=== PATIENT | male | born 1945 | race Caucasian/White ===

== ENCOUNTER → 2019-02-25 | Outpatient (CLI) | payer MEDICARE ==
[2019-02-25 13:08] LABS: Appearance,Urine Clear (Clear); Bilirubin,Urine Negative (Negative); Blood,Urine Negative (Negative); Color,Urine Yellow; Glucose,Urine (UA) Negative (Negative); Ketones,Urine Negative (Negative); Leukocyte Esterase,Urine Negative (Negative); Nitrite,Urine Negative (Negative); Protein,Urine Negative (Negative); Specific Gravity,Urine 1.023 (1.001-1.035); Urobilinogen,Urine <2.0 mg/dL (<2.0)
[2019-02-25 13:16] LABS: Albumin 3.9 g/dL (3.5-5.0); Calcium 9.5 mg/dL (8.4-10.2); HCT 41.3 % (39.0-53.0); HGB 13.7 gm/dL (13.0-17.5); MCH 32.3 pg (25.0-35.0); MCHC 33.2 g/dL (31.0-37.0); MCV 97.2 fL (80.0-100.0); Mean Platelet Volume 7.9; Platelet Count 284 k/uL (150-450); Potassium 5.3 mmol/L (3.5-5.1); RBC 4.25 m/uL (4.30-5.90); RDW 14.1 % (11.5-15.5); Total Bilirubin 0.5 mg/dL (0.2-1.3); Total Protein 6.5 g/dL (6.3-8.2); WBC 5.9 k/uL (3.8-10.6)
[2019-02-25 13:28] LABS: INR 0.9 (<1.2); Partial Thromboplastin Time 22.8 sec (22.0-30.0)
== END ==
LOC: LABPAT 12:07
PROVIDERS: ATTEND Orthopaedic Surgery
DX: Z01.818 Encounter for other preprocedural examination (principal); Z01.812 Encounter for preprocedural laboratory examination; Z79.01 Long term (current) use of anticoagulants
CPT/HCPCS: 36415; 80053; 81003; 85027; 85610; 85730; 87070; 93005

== ENCOUNTER 2019-03-14 05:43 | Inpatient (IN) | payer BC, MEDICARE ==
[~2019-03-14 05:43] MED LIST: ACETAMINOPHEN TAB 500 MG TAB PO ONE; MELOXICAM 7.5 MG TAB PO ONE; ONDANSETRON 4 MG/2 ML VIAL IVP ONE; TRANEXAMIC ACID 1,000 MG in SODIUM CHLORIDE 0.9% 100 ML IVPB ONE; ceFAZolin IN SWFI 2 GM/20 ML SYRINGE IVP ONE
[2019-03-14] MEDS ORDERED: LACTATED RINGERS 1,000 ML IV ONE ×2 (06:30→09:50)
[2019-03-14] MEDS ORDERED: LIDOCAINE 1% 20 ML VIAL (10MG/ML) FOR IV START INTRADERMA ONE (06:30)
[2019-03-14] MEDS ORDERED: DEXAMETHASONE SOD PHOSPHATE 10 MG/ML 1 ML VIAL IV ONE (06:55)
[2019-03-14] MEDS ORDERED: ONDANSETRON 4 MG/2 ML VIAL IVP ONE (06:55)
[2019-03-14] MEDS ORDERED: ROPIVACAINE 246.25 MG, EPINEPHrine 0.5 MG, KETOROLAC 30 MG, cloNIDine HCL/PF 80 MCG, WA... MISCELLANE ONE ×5 (06:55)
[2019-03-14] MEDS ORDERED: MIDAZOLAM (PF) 2 MG/2 ML VIAL IV ONE (07:02)
[2019-03-14] MEDS ORDERED: ROPIVACAINE 1,100 MG, SODIUM CHLORIDE 0.9% 500 ML 330 ML MISCELLANE PRN ×2 (07:21)
[2019-03-14] MEDS ORDERED: GLYCOPYRROLATE 0.2 MG/ML 2 ML VIAL ONE (07:39)
[2019-03-14] MEDS ORDERED: PROPOFOL 10 MG/ML 20 ML VIAL IV ONE (07:39)
[2019-03-14] MEDS ORDERED: TRANEXAMIC ACID 1,000 MG/10 ML VIAL ONE (07:39)
[2019-03-14] MEDS ORDERED: SODIUM CHLORIDE 0.9% 100 ML BAG ONE (07:39)
[2019-03-14] MEDS ORDERED: fentaNYL (PF) 50 MCG/ML 2 ML AMP ONE (07:39)
[2019-03-14] MEDS ORDERED: MIDAZOLAM 2 MG/2 ML VIAL ONE (07:39)
[2019-03-14] MEDS ORDERED: ceFAZolin 3,000 MG in SODIUM CHLORIDE 0.9% IRRIGATIO 3,000 ML IRRIGATION ONE (07:45)
--- NOTE | 2019-03-14 08:51 | P.ONQ ---
Anesthesiology Proc Note - PNB - Peripheral Nerve Block Performed Left Adductor Canal Infusion Procedure Start Time: 07:02 Procedure Stop Time: 07:15 Indication: Acute Post-Operative Pain, Requested by physician Sedation Type: Sedate with meaningful contact maintained Preparation: Sterile Prep Position: Supine Catheter: Indwelling Needle Types: On-Q Needle Size: 100mm (4") Needle Gauge: 18 Technique: Ultrasound Injectate: 0.5% Ropivacaine (see comment for volume) (20 mL)
--- NOTE | 2019-03-14 09:34 | P.OP ---
Date of Procedure: 03/14/19 Procedure(s) Performed: PREOPERATIVE DIAGNOSIS: Left knee severe osteoarthritis with genu varum POSTOPERATIVE DIAGNOSIS: Left knee severe osteoarthritis with genu varum OPERATION: Left knee cemented total replacement arthroplasty. ANESTHESIA: Spinal ESTIMATED BLOOD LOSS: 100 ml. GRAPHITE GRINDER: Katina Hoffman PA-C (assistance with: patient positioning, retraction, exposure, hemostasis, leg positioning, implantation, irrigation, closure, dressing) COMPLICATIONS: None apparent. COMPONENTS IMPLANTED: Persona system from [employer] INDICATIONS: Mr. Ribera is a 73 year old male with a history of left knee osteoarthritis. Conservative treatment has been tried and has been unsuccessful in controlling symptoms adequately. The operation of knee replacement has been discussed at length in the office, as well as potential risks and complications. These are inclusive of, but not limited to: bleeding, infection, scarring, discomfort, blood vessel and nerve damage, need for further surgery, failure to relieve symptoms, persistence, recurrence, or worsening of problems, loosening, dislocation, wear, blood clot, pulmonary embolism, , gait dysfunction, stiffness, and other risks as discussed in the office. The patient elects to proceed and the consent form has been signed. PROCEDURE: The patient was taken to the operating room and positioned on the operating room table in the supine position. Anesthesia was initiated. Care was taken to make sure that all pressure points were adequately padded. The operative lower extremity was prepped and draped in the usual aseptic fashion using ChloraPrep. Ioban drape was used for the case and the patient received intravenous antibiotics within one hour of the incision. A pneumotourniquet and leg manuel were used for the case. The limb was exsanguinated with an Esmarch bandage and the tourniquet was inflated to 350 mmHg. Time-out was called confirming the patient's identity, side, procedure and administration of antibiotics and tranexamic acid, 1 g IV. The incision was then created midline directly over the knee, carried down thr ough skin and into the subcutaneous tissues and down to fascia. Full thickness subcutaneous medial flap was developed. Medial parapatellar arthrotomy was performed and the interior of the knee was inspected. There was end-stage osteoarthritis of the knee with a mild to moderate genu varum type deformity. The fat pad was excised and proximal medial release on the tibia was completed using meticulous dissection and a curved osteotome. The anterior cruciate ligament was taken down. Note was made of significant attrition of the anterior and significant degenerative appearance of the posterior cruciate ligaments. The exposure was excellent. The knee was flexed 90 degrees and the patella was everted. A spot was chosen on the femur approximately 1 cm anterior to the posterior cruciate ligament insertion and an intramedullary hole was created within the femur. The intramedullary guide was then set to 5 degrees of valgus. The distal cutting block was attached and pinned into position. An appropriate amount of distal femoral resection was set. The oscillating saw was then used to make the distal femoral cut. This cut was confirmed to be flat with the flat end of an osteotome. The retractors were placed around the tibia and the tibial surface was addressed. The angle and depth of resection was adjusted using an extramedullary cutting guide. The guide had a built-in 3 degree posterior slope cut. Once the cutting guide was adjusted appropriately and in line with the axis of the tibia and confirmed to be in good position in relation to the second metatarsal and transmalleolar axis, the tibial cut was then created with protection of the posterior neurovascular structures and the collateral ligaments. The tibial cut surface was removed and sized. Femoral sizing was then accomplished using anterior referencing. Care was taken to analyze the posterior condyles for signs of deficiency or severe wear, and adjustments to the guide were made, as appropriate. 3 degree external rotation pins were placed. The cutting jig for the femur was applied to these pins. The planned cuts were further analyzed prior to performing them with the oscillating saw. No femoral notching was produced. Bone fragments were removed and the cut surfaces were finished, as necessary, with a reciprocating saw. Spacer block technique was then used to confirm that the flexion and extension gaps were equal. Soft tissue releases and adjustment of the tibial and/or femoral cuts were made, as necessary, until the gaps were equal. This included release of the posterior cruciate ligament, which was tight in this patient. The femur was then further finished for a posterior cruciate ligament substituting component. Patellar resurfacing was performed using a reamer. The size of the required patellar component was estimated and the patellar surface was then reamed down to a residual thickness which would recreate the lummi thickness with the component. The exact placement of the patellar component was adjusted for position based on preoperative x-rays and intraoperative findings. Prior to placing trial components, anesthetic solution consisting of ropivicaine with epinephrine, ketorolac, and clonidine was injected carefully and methodically in a grid pattern using aspiration technique into the soft tissue around the knee circumferentially, starting with the deeper tissues first and progressing to fascia, and then finally the skin/subcutaneous tissue. Particular care was taken when injecting the posterior capsule. The trial components were inserted. The tibial tray was allowed to self center and the patella was noted to track very well. The position of the tibial component was marked and the tibia was then finished for a stemmed tibial component. Cement was mixed on the back table and applied to the final components. Trial components were removed and the cut surfaces of the bone were pulse lavaged thoroughly and dried. Cement was then applied to the tibial surfac e and pressurized into the surface using finger pressurization technique. The tibial component was then applied and excess cement was removed after it was impacted securely and noted to be flush with the cut surface. In similar fashion, the cement was applied to the cut femoral surface, pressurized in using finger pressurization and the component was impacted into place. Excess cement was removed. The polyethylene spacer was then implanted and locked into position. The patellar component was then applied in similar technique and a patellar clamp was used to hold the patella in place as the c ement hardened. Once the cement had fully hardened, the knee was reinspected. Any other cement extrusion was removed and final kinematic testing showed range of motion from 0 to 130 degrees with excellent stability, both medially and laterally and appropriate alignment of the leg. Patellar tracking was excellent. The knee was then thoroughly pulse lavaged with normal saline. The tourniquet was deflated and hemostasis was obtained with electrocautery and IV tranexamic acid, 1 g given prior to inflation of the tourniquet and another gram given at the time of closure. Closure was with #2 Ethibond in the fascia and supplemented with #2 Quill, 2-0 Vicryl suture was used for the subcutaneous tissues and 3-0 Quill for the skin. Dermabond/Steri-Strips were then applied. A lightly compressive dressing was applied using Webril and an William wrap. The patient was then transferred to [facility] and taken to the recovery room in stable condition. Sponge and needle counts were correct.
[2019-03-14] MEDS ORDERED: HYDROmorphone 0.5 MG/0.5 ML SYRINGE IVP PRN ×3 (10:08)
[2019-03-14] MEDS ORDERED: MAGNESIUM HYDROXIDE 2,400 MG/10 ML CUP PO PRN (10:08)
[2019-03-14] MEDS ORDERED: BISACODYL 10 MG SUPP RECTAL PRN (10:08)
[2019-03-14] MEDS ORDERED: NALOXONE 0.4 MG/ML 1 ML VIAL IV PRN (10:08)
[2019-03-14] MEDS ORDERED: NA PHOS,M-B/NA PHOS,DI-BA 133 ML ENEMA RECTAL PRN (10:08)
--- NOTE | 2019-03-14 10:41 | XR ---
EXAMINATION TYPE: XR knee limited LT DATE OF EXAM: 03/14/2019 COMPARISON: NONE TECHNIQUE: Two views submitted HISTORY: Post op FINDINGS: There is a prosthetic knee in near anatomic alignment. There is soft tissue edema and emphysema. IMPRESSION: 1. Postoperative change. Appears in near-anatomic alignment
[2019-03-14] MEDS: HYDROmorphone 1 MG/ML 1 ML SYRINGE IVP ONE ×2 (10:43→10:48)
[2019-03-14 11:15] VITALS: BMI 30.3
[2019-03-14] MEDS: ceFAZolin IN SWFI 2 GM/20 ML SYRINGE IVP SCH (16:17)
[2019-03-14] MEDS: LACTATED RINGERS 1,000 ML IV SCH ×2 (16:20→20:55)
--- NOTE | 2019-03-14 17:20 | P.CONS ---
History of Present Illness - Reason for Consult Consult date: 03/14/19 Management of hypertension, chronic medical problems Requesting physician: Kirby Glass - Chief Complaint Postop day 0 status post left total knee arthroplasty - History of Present Illness Patient is a 73-year-old male with history of coronary disease, dyslipidemia, hypertension, who states that over the last few years he's had increasing difficulty with pain from his left knee. Patient states he had arthroscopy done, steroid shots, no avail since this was affecting his activities of daily living patient was scheduled for left total knee arthroplasty. He was seen by cardiology for cardiac preoperative care and also did recently see cancer stress test with lateral SC with mild fernanda-infarct ischemia. 45% patient is status post surgery he denies any shortness of breath or chest pain. He has some left knee pain he denied any nausea or vomiting Review of Systems Complete review of systems was done and negative Ottoman as stated above Past Medical History Past Medical History: Hyperlipidemia, Myocardial Infarction (SC) Additional Past Medical History / Comment(s): LOW BACK PAIN Last Myocardial Infarction Date:: 1994 History of Any Multi-Drug Resistant Organisms: None Reported Past Surgical History: Heart Catheterization, Orthopedic Surgery, Tonsillectomy Additional Past Surgical History / Comment(s): fx left leg and arm(pin left leg,later removed), CATARACT LEFT EYE Past Anesthesia/Blood Transfusion Reactions: No Reported Reaction Past Psychological History: No Psychological Hx Reported Smoking Status: Former smoker Past Alcohol Use History: Occasional Additional Past Alcohol Use History / Comment(s): quit smoking 1994, smoked s tarted early 20's, 1 PPD Past Drug Use History: None Reported - Past Family History Mother Family Medical History: No Reported History Medications and Allergies Home Medications Medication Instructions Recorded Confirmed Type Aspirin [Adult Low Dose Aspirin EC] 81 mg PO DAILY 07/05/16 03/14/19 History Atorvastatin [Lipitor] 40 mg PO HS 07/05/16 03/14/19 History Ezetimibe [Zetia] 10 mg PO HS 07/05/16 03/14/19 History Losartan [Cozaar] 50 mg PO DAILY 07/05/16 03/14/19 History Multivitamins, Thera [Multivitamin] 1 tab PO DAILY 07/05/16 03/14/19 History Topiramate [Topamax] 100 mg PO BID 07/05/16 03/14/19 History Metoprolol Succinate [Toprol XL] 25 mg PO DAILY 03/04/19 03/14/19 History Aspirin [Adult Low Dose Aspirin EC] 81 mg PO DAILY #1 tablet. 03/14/19 Rx Rivaroxaban [Xarelto] 10 mg PO DAILY #5 tab 03/14/19 Rx Sennosides-Docusate Sodium 1 tab PO BID #60 tablet 03/14/19 Rx [Senokot-S] traMADol HCL [Ultram] 50 mg PO Q6HR PRN #28 tab 03/14/19 Rx Allergies Allergy/AdvReac Type Severity Reaction Status Date / Time codeine Allergy Nausea & Verified 03/14/19 10:23 Vomiting Physical Exam Vitals: Vital Signs Temp Pulse Pulse Resp BP BP BP 03/14/19 12:12 49 L 133/62 03/14/19 11:53 60 139/114 03/14/19 11:36 48 L 125/72 03/14/19 11:35 52 L 16 03/14/19 11:22 56 L 117/64 03/14/19 11:07 97.6 F 50 L 16 101/56 03/14/19 10:50 52 L 16 126/58 03/14/19 10:35 50 L 16 117/60 03/14/19 10:20 50 L 16 120/60 03/14/19 10:05 97.8 F 52 L 16 121/56 03/14/19 07:20 43 L 16 125/58 03/14/19 06:30 97.2 F L 48 L 16 117/56 Pulse Ox 03/14/19 12:12 95 03/14/19 11:53 03/14/19 11:36 03/14/19 11:35 03/14/19 11:22 03/14/19 11:07 95 03/14/19 10:50 100 03/14/19 10:35 100 03/14/19 10:20 100 03/14/19 10:05 98 03/14/19 07:20 100 03/14/19 06:30 97 Intake and Output 03/14/19 03/14/19 03/14/19 06:59 14:59 22:59 Intake Total 300 901 Output Total 100 Balance 300 801 Intake: IV 300 901 Output: Estimated Blood Loss 100 Other: Weight 90.4 kg - Constitutional General appearance: no acute distress - EENT Eyes: PERRLA - Respiratory Respiratory: bilateral: CTA - Cardiovascular Rhythm: regular Heart sounds: normal: S1, S2 - Gastrointestinal General gastrointestinal: normal bowel sounds, soft - Integumentary Integumentary: normal turgor - Neurologic Neurologic: CNII-XII intact - Musculoskeletal Left knee wrapped strength not tested - Psychiatric Psychiatric: A&O x's 3, appropriate affect, intact judgment & insight Assessment and Plan Assessment: Hypertension Coronary artery disease Postop day 0 total left knee arthroplasty Plan: Optimize blood pressure control per cardiology recommendation, continue home regimen, optimize pain control, thank you for the consult will follow along medically optimized as needed
[2019-03-14] MEDS: SENNOSIDES-DOCUSATE SODIUM 1 EACH TAB PO SCH (20:53)
[2019-03-14] MEDS: TOPIRAMATE 100 MG TAB PO SCH (20:53)
[2019-03-14] MEDS: ATORVASTATIN 40 MG TAB PO SCH (20:54)
[2019-03-14] MEDS: EZETIMIBE 10 MG TAB PO SCH (20:54)
[2019-03-14] MEDS ORDERED: TEMAZEPAM 15 MG CAP PO PRN (22:00)
[2019-03-15] MEDS: ceFAZolin IN SWFI 2 GM/20 ML SYRINGE IVP SCH (02:14)
[2019-03-15] MEDS: RIVAROXABAN 10 MG TAB PO SCH (07:20)
[2019-03-15] MEDS: MULTIVITAMINS, THERA 1 EACH TAB PO SCH (07:20)
[2019-03-15] MEDS: ASPIRIN 81 MG PO SCH (07:20)
[2019-03-15] MEDS: TOPIRAMATE 100 MG TAB PO SCH ×2 (07:20→23:05)
[2019-03-15] MEDS: traMADol 50 MG TAB PO PRN ×2 (07:21→15:36)
[2019-03-15] MEDS: MELOXICAM 7.5 MG TAB PO SCH (07:21)
[2019-03-15] MEDS: LACTATED RINGERS 1,000 ML IV SCH ×2 (07:28→07:32)
[2019-03-15 08:29] LABS: Basophils % (A) 0 %; Eosinophils # (A) 0.1 k/uL (0-0.7); Eosinophils % (A) 1 %; HCT 38.6 % (39.0-53.0); HGB 12.4 gm/dL (13.0-17.5); Lymphocytes # (A) 0.9 k/uL (1.0-4.8); Lymphocytes % (A) 11 %; MCH 31.8 pg (25.0-35.0); MCHC 32.1 g/dL (31.0-37.0); MCV 98.8 fL (80.0-100.0); Mean Platelet Volume 8.3; Monocytes # (A) 0.8 k/uL (0-1.0); Monocytes % (A) 10 %; Neutrophils # (A) 6.5 k/uL (1.3-7.7); Neutrophils % (A) 77 %; Platelet Count 217 k/uL (150-450); RBC 3.91 m/uL (4.30-5.90); RDW 13.3 % (11.5-15.5); WBC 8.4 k/uL (3.8-10.6)
[2019-03-15] MEDS ORDERED: METOPROLOL SUCCINATE (ER) 25 MG TAB.ER.24H PO SCH (09:00)
[2019-03-15] MEDS ORDERED: LOSARTAN 50 MG TAB PO SCH (09:00)
[2019-03-15] MEDS ORDERED: SODIUM CHLORIDE 0.9% 500 ML 500 ML IV ONE (09:55)
[2019-03-15] MEDS ORDERED: HYDROcodone/APAP 5-325MG 1 EACH TAB PO PRN ×2 (10:17→16:43)
--- NOTE | 2019-03-15 10:20 | P.PN ---
Subjective Progress Note Date: 03/15/19 Principal diagnosis: left knee pain Patient is a 73-year-old male past medical history of dyslipidemia, myocardial infarction, and chronic low back pain who presented for an elective left knee replacement. He tolerated the procedure well. Patient seen and examined at bedside. is present. He is feeling very dizzy after getting up and walking on. He is having severe pain in his left knee. He reports that he was not having any dizziness but got up to go to the bathroom and urinated and then felt exceedingly dizzy. Nursing checked his blood pressure systolic of 74/48. He did receive his Cozaar and metoprolol this morning. He has not received any IV narcotics. Chest pain, or shortness of breath. He denies any nausea. Objective - Vital Signs Vital signs: Vital Signs Temp 98.3 F 03/15/19 07:00 Pulse 59 L 03/15/19 07:00 Resp 14 03/15/19 07:00 BP 122/62 03/15/19 07:00 Pulse Ox 99 03/15/19 07:00 Intake & Output 03/14/19 03/15/19 03/15/19 18:59 06:59 18:59 Intake Total 901 Output Total 100 200 25 Balance 801 -200 -25 Intake: IV 901 Output: Urine 200 25 Estimated Blood Loss 100 Other: # Voids 2 1 - Exam General: non toxic, no distress, appears at stated age Derm: +Pale, warm, dry Head: atraumatic, normocephalic, symmetric Eyes: EOMI, no lid lag, anicteric sclera Mouth: no lip lesion, mucus membranes moist Cardiovascular: S1S2 reg, no murmur, positive posterior tibial pulse bilateral, Lungs: CTA bilateral, no rhonchi, no rales , no accessory muscle use Abdominal: soft, nontender to palpation, no guarding, no appreciable organomegaly Ext: no gross muscle atrophy, 1+ edema left lower extremity, no contractures Neuro: CN II-XI grossly intact, no focal neuro deficits Psych: Alert, oriented, appropriate affect - Labs CBC & Chem 7: 03/15/19 06:37 Labs: Abnormal Lab Results - Last 24 Hours (Table) 03/15/19 Range/Units 06:37 RBC 3.91 L (4.30-5.90) m/uL Hgb 12.4 L (13.0-17.5) gm/dL Hct 38.6 L (39.0-53.0) % Lymphocytes # 0.9 L (1.0-4.8) k/uL Assessment and Plan Assessment: Hypotension - 500 CC bolus - Follow BP - D/C metoprolol and cozaar- has already been given today - follow BP Post op pain after Left TKA - Hold IV narcotics until BP imrpoved - continue tramadol HLD - zetia, liptior - outpatient follow-up CAD - continue ASA DVT prophylaxis: Xarelto Discussed with: Patient, , nursing, Ortho PA Anticipated discharge: per ortho A total of 25 minutes was spent on the care of this complex patient more than 50% of the time was spent in counseling and care coordination.
--- NOTE | 2019-03-15 12:06 | P.PN ---
Subjective Progress Note Date: 03/15/19 Principal diagnosis: S/P Left TKA Patient is seen at bedside this morning. He is postop day #1 from left total knee arthroplasty.. He has pain at the surgical site as expected. He had an episode of dizziness and hypotension which is being addressed per IM. He denies any new complaints. He denies numbness, tingling or calf pain. Review of systems is negative for fever, chills, chest pain, shortness of breath or other Objective - Vital Signs Vital signs: Vital Signs Temp 98.3 F 03/15/19 07:00 Pulse 53 L 03/15/19 10:41 Resp 14 03/15/19 07:00 BP 106/59 03/15/19 10:41 Pulse Ox 99 03/15/19 07:00 Intake & Output 03/14/19 03/15/19 03/15/19 18:59 06:59 18:59 Intake Total 901 Output Total 100 200 275 Balance 801 -200 -275 Intake: IV 901 Output: Urine 200 275 Estimated Blood Loss 100 Other: # Voids 2 1 - Exam Inspection reveals a benign surgical wound. There is no active bleeding or drainage. Neurovascular status is intact throughout the lower extremity with motor and sensation fully intact. Calf is soft and nontender. 2+ dorsalis pedis pulse and less than 2 second cap refill is present. - Constitutional General appearance: Present: no acute distress - Labs CBC & Chem 7: 03/15/19 06:37 Labs: Abnormal Lab Results - Last 24 Hours (Table) 03/15/19 Range/Units 06:37 RBC 3.91 L (4.30-5.90) m/uL Hgb 12.4 L (13.0-17.5) gm/dL Hct 38.6 L (39.0-53.0) % Lymphocytes # 0.9 L (1.0-4.8) k/uL Assessment and Plan (1) Status post total left knee replacement Narrative/Plan: He will continue with routine postop orthopedic protocol including pain management, wound care, PT, DVT prophylaxis and medical management. Expect that he will D/C to [facility] later today or tomorrow if ok with IM. Current Visit: Yes Status: Acute Priority: Medium Code(s): Z96.652 - PRESENCE OF LEFT ARTIFICIAL KNEE JOINT SNOMED Code(s): 9493254216170 Time with Patient: Less than 30
[2019-03-15] MEDS: HYDROcodone/APAP 5-325MG 1 EACH TAB PO PRN ×2 (18:06→23:03)
[2019-03-15] MEDS: SENNOSIDES-DOCUSATE SODIUM 1 EACH TAB PO SCH (23:04)
[2019-03-15] MEDS: EZETIMIBE 10 MG TAB PO SCH (23:04)
[2019-03-15] MEDS: ATORVASTATIN 40 MG TAB PO SCH (23:04)
[2019-03-16] MEDS: LACTATED RINGERS 1,000 ML IV SCH ×2 (03:55→12:33)
[2019-03-16] MEDS: HYDROcodone/APAP 5-325MG 1 EACH TAB PO PRN ×2 (05:24→13:30)
[2019-03-16 08:23] VITALS: BP 135/76; PULSE 82; RESP 12; TEMP 98
[2019-03-16] MEDS: MELOXICAM 7.5 MG TAB PO SCH (09:19)
[2019-03-16] MEDS: TOPIRAMATE 100 MG TAB PO SCH (09:20)
[2019-03-16] MEDS: RIVAROXABAN 10 MG TAB PO SCH (09:20)
[2019-03-16] MEDS: MULTIVITAMINS, THERA 1 EACH TAB PO SCH (09:20)
[2019-03-16] MEDS: ASPIRIN 81 MG PO SCH (09:20)
--- NOTE | 2019-03-16 11:47 | P.DS ---
Providers Date of admission: 03/14/19 05:43 Expected date of discharge: 03/16/19 Attending physician: Kirby Glass Consults: 03/14/19 10:08 Consult Physician Routine Consulting Provider: Marietta Degroot Consult Reason/Comments: Medical management Do you want consulting provider notified?: Yes Primary care physician: Ronnell Shepherd - Discharge Diagnosis(es) (1) Status post total left knee replacement Patient was admitted to the OR on to undergo a left total knee arthroplasty. He had failed conservative measures as an outpatient and desired to proceed with elective surgery after given informed consent. He underwent the above procedure which she tolerated well without complication. Postoperative hospital course has remained without complication. On day of discharge he is afebrile, vital signs stable, labs within acceptable ranges, tolerating by mouth meds and diet, voiding without difficulty, positive flatus, denies abdominal pain or calf pain, pain is controlled on oral pain medication and has no new complaints. Wound is benign, neurovascular status is intact, calf is soft and nontender, abdomen soft and nontender. Review of systems is negative for numbness, tingling, fever, chills, chest pain, shortness breath, nausea, vomiting, dizziness, headaches, slurred speech or other Current Visit: Yes Status: Acute Priority: Medium Procedures: Left TKA Patient Condition at Discharge: Good Plan - Discharge Summary Discharge Rx Participant: Yes New Discharge Prescriptions: New Aspirin [Adult Low Dose Aspirin EC] 81 mg PO DAILY #1 tablet.dr Garza-Docusate Sodium [Senokot-S] 1 tab PO BID #60 tablet traMADol HCL [Ultram] 50 mg PO Q6HR PRN #28 tab PRN Reason: Pain Rivaroxaban [Xarelto] 10 mg PO DAILY #5 tab Docusate [Colace] 100 mg PO BID #60 capsule HYDROcodone/APAP 5-325MG [[place] 5-325] 1 tab PO Q4HR PRN #42 tab PRN Reason: Pain Continue Topiramate [Topamax] 100 mg PO BID Atorvastatin [Lipitor] 40 mg PO HS Aspirin [Adult Low Dose Aspirin EC] 81 mg PO DAILY Ezetimibe [Zetia] 10 mg PO HS Metoprolol Succinate [Toprol XL] 25 mg PO DAILY Discontinued Losartan [Cozaar] 50 mg PO DAILY No Action Multivitamins, Thera [Multivitamin] 1 tab PO DAILY Discharge Medication List Aspirin [Adult Low Dose Aspirin EC] 81 mg PO DAILY 07/05/16 [History] Atorvastatin [Lipitor] 40 mg PO HS 07/05/16 [History] Ezetimibe [Zetia] 10 mg PO HS 07/05/16 [History] Multivitamins, Thera [Multivitamin] 1 tab PO DAILY 07/05/16 [History] Topiramate [Topamax] 100 mg PO BID 07/05/16 [History] Metoprolol Succinate [Toprol XL] 25 mg PO DAILY 03/04/19 [History] Aspirin [Adult Low Dose Aspirin EC] 81 mg PO DAILY #1 tablet. 03/14/19 [Rx] Rivaroxaban [Xarelto] 10 mg PO DAILY #5 tab 03/14/19 [Rx] Sennosides-Docusate Sodium [Senokot-S] 1 tab PO BID #60 tablet 03/14/19 [Rx] traMADol HCL [Ultram] 50 mg PO Q6HR PRN #28 tab 03/14/19 [Rx] Docusate [Colace] 100 mg PO BID #60 capsule 03/15/19 [Rx] HYDROcodone/APAP 5-325MG [[place] 5-325] 1 tab PO Q4HR PRN #42 tab 03/15/19 [Rx] Follow up Appointment(s)/Referral(s): Katina Hoffman PAC [PHYSICIAN INSPECTOR LINE] - 03/27/19 4:00 pm Ronnell Shepherd MD [Primary Care Provider] - 03/20/19 10:30 am Nallely Haley NPC [Nurse Practitioner] - [facility] Week [facility], [NON-STAFF] - Activity/Diet/Wound Care/Special Instructions: May bear weight as tolerated with a walker. May shower if no drainage from incision. Stay off Losartan for the time being. Have your blood pressure checked by home health on 2 different occasions. If your systolic blood pressure (top number) is greater than 120 on both occasions then restart your Losartan. Discharge Disposition: HOME WITH HOME HEALTH SERVICES
--- NOTE | 2019-03-16 21:18 | P.PN ---
Subjective Progress Note Date: 03/16/19 Principal diagnosis: left knee pain Patient is a 73-year-old male past medical history of dyslipidemia, myocardial infarction, and chronic low back pain who presented for an elective left knee replacement. He tolerated the procedure well. Patient seen and examined at bedside. Dizziness was resolved, up and walking around, pain tolerable. Discussed at length with and patient recommendations for blood pressure monitoring at discharge. Patient currently does not blood pressure cuff but will be having home health care. Objective - Vital Signs Vital signs: Vital Signs Temp 98 F 03/16/19 07:00 Pulse 82 03/16/19 07:00 Resp 12 03/16/19 07:00 BP 135/76 03/16/19 07:00 Pulse Ox 94 L 03/16/19 02:00 Intake & Output 03/15/19 03/16/19 03/16/19 18:59 06:59 18:59 Intake Total 1500 Output Total 275 Balance 1225 Intake: Intake, IV Titration 500 Amount Sodium Chloride 0.9% 500 500 ml 500 ml @ 999 mls/hr IV .Q31M ONE Rx#:[id number] Oral 1000 Output: Urine 275 Other: # Voids 1 - Exam General: non toxic, no distress, appears at stated age Derm: warm, dry Head: atraumatic, normocephalic, symmetric Eyes: EOMI, no lid lag, anicteric sclera Mouth: no lip lesion, mucus membranes moist Cardiovascular: S1S2 reg, no murmur, positive posterior tibial pulse bilateral, Lungs: CTA bilateral, no rhonchi, no rales , no accessory muscle use Abdominal: soft, nontender to palpation, no guarding, no appreciable organomegaly Ext: no gross muscle atrophy, 1+ edema left lower extremity, no contractures Neuro: CN II-XI grossly intact, no focal neuro deficits Psych: Alert, oriented, appropriate affect - Labs CBC & Chem 7: 03/15/19 06:37 Assessment and Plan Assessment: Hypotension, resolved with history of hypertension -Resume metoprolol, hold Cozaar -Discharged with the following instructions: Stay off Losartan for the time being. Have your blood pressure checked by home health on 2 different occasions. If your systolic blood pressure (top number) is greater than 120 on both occasions then restart your Losartan. Post op pain after Left TKA - pain control - continue tramadol HLD - zetia, liptior - outpatient follow-up CAD - continue ASA Medically optimized for discharge at the discretion of orthopedics. DVT prophylaxis: Xarelto Discussed with: Patient, Anticipated discharge: per ortho A total of 25 minutes was spent on the care of this complex patient more than 50% of the time was spent in counseling and care coordination.
== END 2019-03-16 13:30 | disposition home health service (06) | DRG 470 ==
LOC: 2ORMAIN 05:43 → 4SSUR 10:04
PROVIDERS: ADMIT Orthopaedic Surgery; ATTEND Orthopaedic Surgery
PROC: 3E0T3BZ Introduction of Anesthetic Agent into Peripheral Nerves and Plexi, Percutaneous Approach (ICD-10-PCS; 2019-03-14)
PROC: 0SRD0J9 Replacement of Left Knee Joint with Synthetic Substitute, Cemented, Open Approach (ICD-10-PCS; principal; 2019-03-14 07:30)
DX: M17.12 Unilateral primary osteoarthritis, left knee (principal); M21.169 Varus deformity, not elsewhere classified, unspecified knee; E78.5 Hyperlipidemia, unspecified; I10 Essential (primary) hypertension; I25.2 Old myocardial infarction; I25.10 Atherosclerotic heart disease of native coronary artery without angina pectoris; Z79.01 Long term (current) use of anticoagulants; Z79.82 Long term (current) use of aspirin; Z79.899 Other long term (current) drug therapy; Z87.891 Personal history of nicotine dependence
CPT/HCPCS: 85025; 88300